=== PATIENT | male | born 1970 | race Caucasian/White ===

== ENCOUNTER 2024-07-20 10:08 | Outpatient (CLI) | payer OTHER, SELFPAY ==
--- NOTE | 2024-07-20 | ECG_ITS ---
Test Date: 2024-07-20 10:36:01 Measurements Intervals [place] Rate: 70 P: 76 MA: 176 QRS: 60 QRSD: 88 T: 57 QT: 365 QTc: 395 Interpretive Statements SINUS RHYTHM POSSIBLE RIGHT VENTRICULAR CONDUCTION DELAY PEAKED T WAVES- CONSIDER HYPERKALEMIA BASELINE ARTIFACT- I, II, III, AVR, AVL ABNORMAL ECG No previous ECG available for comparison Electronically Signed On 07-20-2024 10:37:57 FACILITIES MAINTENANCE SUPERVISOR by Trent Lim D.O.
--- OUTSIDE RECORDS SUMMARY | 2024-07-20 11:14 | XMS_ITS ---
Author Organization [facility] Address [address] [place] [address] Care Team Providers Care Precision Optical Goods Worker Name Role Phone Toñito Guidry MD Unavailable Rc Dodd MD Unavailable Palomo Mason MD Unavailable Amanda Gramajo NP Primary Care Provider [phone] Active Problems Problem Noted Date Diagnosed Date Mass of finger, right 06/20/2020 Overview (06/20/2020): Added automatically from request for surgery [id number] Sensorineural hearing loss (SNHL), bilateral 06/2018 Tinnitus of both ears 10/07/2018 Allergic rhinitis 08/11/2018 Hypertrophy of nasal turbinates 08/11/2018 Deviated nasal septum 08/11/2018 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 Transoral robotic assisted left base of tongue resection 2. Left neck dissection levels 2,3,4 3. Right neck dissection levels 2,3,4 4. Ligation of external carotid system: lingual and facial arteries 5. MINT study, he started on adjuvant radiation with a single dose of cisplatin on 07/22/18. Radiation treatment completed on 08/19/18 Sensory hearing loss, bilateral 05/27/2018 Laryngopharyngeal reflux 07/25/2010 Dysphonia 07/25/2010 Current Oncology Plans No current plan information found. Past Plans Oncology Chemotherapy Treatment Plan Name Start Date Discontinue Date Treatment Medications Discontinue Reason Plan Provider Cycles [id number] - [facility] - Head and Neck - Arm 1 - POAmCRT - Cisplatin x 1 07/22/2018 11/22/2020 CISplatin (PLATINOL) IVPB in 250 mL Provider Discretion Oppelt, Rc Heredia MD 1 of 1 cycle started Radiation Treatments * Plan Last Treated On Elapsed Days Fractions Treated Prescribed Fraction Dose Prescribed Total Dose HN_LT 08/19/2018 28 21 200 cGy 4,200 cGy Reference Point Last Treated On Elapsed Days Session Dose Total Dose [id number] 08/19/2018 28 200 cGy 4,200 cGy Lifetime Dose Tracking * Chemical Lifetime Dose Automatic Entry Manual Entr y Fluoro Time 9.55 minutes 9.55 minutes 0 minutes Air kerma at the reference point (Ka,r) 6.9 mGy 6 .9 mGy 0 mGy DLP 7,016.9 mGycm 7,016.9 mGycm 0 mGycm Treatment Summaries 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 [facility] [address] [place] [address] This Survivorship Care Plan is a cancer treatment summary and follow-up plan and is provided to youto keep with your health care records and to share with your primary care provider or any of your doctors and nurses. This summary is a brief record of major aspects of your cancer treatment not a detailed or comprehensive record of your care. You should review this with your cancer provider. Treatment Summary and Survivorship Care Plan for Head and Neck Cancer General Information Patient name David Zhang (home) Date of 1970 Health Care Providers (Including Names, Institutions) Provider Name: Contact Information: Primary Care Physician Ferny Greer [phone] Surgeon Toiñto Guidry MD [phone] Radiation Oncologist Palomo Mason MD [phone] Medical Oncologist Rc Dodd MD [phone] Speech Language Pathologist Regla Cole [phone] Air Quality Engineer Tanya Waddell [phone] Other Providers Nicki Berg PA-C [facility] [phone] Treatment Summary Cancer Diagnosis Information Diagnosis Squamous cell carcinoma of base of tongue (CMS/HCC) Diagnosis date 05/27/2018 Staging information Cancer Staging Squamous cell carcinoma of base of tongue (CMS/HCC) Staging form: Pharynx - HPV-Mediated Oropharynx, AJCC 8th Edition - Pathologic stage from 06/08/2018: Stage I (pT1, pN1, cM0, p16: Positive) - Signed by Tanya Cates MD on 07/02/2018 Family History Cancer Cancer-related family history includes Breast cancer in his mother Genetic Testing Genetic/hereditary risk factors(s) or predisposing condition: n/a Treatment Completed Surgery Surgery date 06/08/2018 Surgical procedure / location / findings 1. Transoral robotic assisted left base of tongue resection 2. Left neck dissection levels 2,3,4 3. Right neck dissection levels 2,3,4 4. Ligation of external carotid system: lingual and facial arteries Radiation Radiation Treatments Active No active radiation treatments to show. Historical Plans HN_LT Most recent treatment: Dose planned: 200 cGy (fraction 21 on 08/19/2018) Total: Dose planned: 4,200 cGy Elapsed Course Treatment Days: 28 Reference Points [id number] Most recent treatment: Dose given: 200 cGy (on 08/19/2018) Total: Dose given: 4,200 cGy Elapsed Course Treatment Days: 28 Systemic Therapy (chemotherapy, hormonal therapy, other) [id number] - [facility] - Head and Neck - Arm 1 - POAmCRT - Cisplatin x 1 Treatment goal Curative Status Active Start Date 07/22/2018 End Date 08/26/2018 Provider Rc Dodd MD Chemotherapy CISplatin (PLATINOL) 195 mg in sodium chloride 0.9% 250 mL IVPB, 100 mg/m2 = 195 mg, intravenous, Once, 1 of 1 cycle Administration: 195 mg (07/22/2018) Research Studies BANKING: HEAD AND NECK TAP Status On study Start Date 05/22/18 MINT Status On follow up Start Date 06/03/18 [facility] [id number] H&N OUTCOMES DATABASE Status On study Start Date 07/02/18 N[facility] [id number] Treatment Ongoing: No Persistent symptoms or side effects that have continued after finishing treatment: difficulty swallowing, dry mouth, Other: neck tightness/cramping Follow Up Care Plan Your follow-up care plan is design to inform you and primary care providers regarding the recommended and required follow-up, cancer screening and routine health maintenance that is needed to maintain optimal health. Coordinating Provider When/How often MD Toñito Monterroso MD Wade Larry Thorstad, MD Year 1: Every 1-3 months Year 2: Every 2-6 months Year 3-5: Every 4-8 months After Year 5: Every year Dentist: Yearly exam and cleaning at a minimum Ferny Greer Yearly for general health recommendations Cancer Surveillance or other Recommended Tests Coordinating Provider Test How Often Rc Dodd MD Repeat pre-treatment baseline imaging Within 6 months of treatment completionfor new baseline, then as needed Palomo Mason MD TSH if neck irradiated Every 6-12 months Possible late- and long-term effects that someone with this type of cancer and treatment may experience: Dental problems: Difficulty opening your moth (Trismus; lock jaw) Loose teeth Swallowing difficulties Tooth decay Chewing difficulties Exposed bone Numbness/tingling Dry mouth See dentist and discuss management. Fatigue Memory/concentration difficulty Muscle tightness/weakness Lymphedema Lymphedema The risk for developing lymphedema varies across treatments, time and the patient. This may occur right after surgery or months to years after treatment. It affects 12 to 25% of patients. The risk increases with the removal of lymph nodes, radiation therapy and injury. Avoid blood pressure or blooddraw in affected arm if lymph nodes were removed. If you experience skin tightness, swelling, warmth or redness in your affected side, tell your provider right away. Physical therapy can improve lymph drainage. Talk with your provider about approved exercise. Avoid extreme temperature, injury or infection on the affected side. Talk to your provider about a compression stocking, especially when flying. Please continue to see your primary care provider for all general health care recommended for a person your age, including cancer screenings tests. Any symptoms should be brought to the attention of your provider: Anything that represents a brand new symptom; Anything that represents a persistent symptom; Anything you are worried about that might be related to the cancer coming back. Cancer survivors may experience issues with the areas listed below. If you have any concerns in these or other areas, please speak with your doctors or nurses to find out how you can get help with them. Anxiety and depression Emotional and mental health Fatigue Fertility Financial advice or assistance Insurance Memory or concentration loss Parenting Physical functioning School/work Sexual functioning Stopping smoking Weight changes Other A number of lifestyle/behaviors can affect your ongoing health, including the risk for the cancer coming back or developing another cancer. Discuss these recommendations with your doctor or nurse: Eat a healthy diet: focus on lean meats and proteins, more fruits, vegetables and whole grains and low in sugars and fats. Limit red meat and avoid processed meat. Maintain a healthy weight; avoid being overweight. Aim for a normal body mass index (BMI) of 18.5-24.9. Help learning to eat healthier, call the solar/renewable energy sales at: [facility] . Have an active lifestyle, strive for 30 minutes of moderate exercise 5 times a week and strength orresistance training at least twice a week. Use broad-spectrum (UVA+UVB) sunscreen with SPF 30 or greater, is water resistant, limit time spentin the sun (10 am-4pm), wear hat, wear UV protective clothing, wear sunglasses. Never use a tanningbed. Skin that was irradiated may be more sensitive over your lifetime. Do not smoke or chew tobacco; participate in a smoking cessation program. Limit alcohol intake, 1 drink per day for a woman and 2 drinks per day for a man. See dentist at least yearly. Resources you may be interested in: [facility] Cancer Center A National Cancer [place] [facility] http://www.[facility]/ [facility] 1st floor of [facility] [phone]. Computer access, educational material, counseling services (FREE) Cancer Resources: www.cancer.net National Cancer [place]: http://www.cancer.gov/ [place] Disabilities Act: The U.S. Department of Justice provides information about the Americans with Disabilities Act (ADA). Toll free number http://www.ada.gov/ Support for People with Oral and Head and Neck Cancer, Inc. (SPOHNC): dedicated to raising awareness and meeting the needs of oral and head and neck cancer patients through its resources and publications. https://www.spohnc.org/index.php Occupational Therapy at [facility]. Improve memory and thinking following chemotherapy. Improve your performance at home, work and in the community. or Toll free www.ot.[facility]/patients National Coalition for Cancer Survivorship: http://www.canceradvocacy.org/ [place] Cancer Society Cancer Survivors Network: http://csn.cancer.org/ LIVE STRONG at the [employer] is a twelve-week, small group program designed to help adult cancer survivors become more physically active after cancer diagnosis: http://www.[employer]ex[employer].org/what-we-do/our-act ions/programs-partnerships/twhvokbrom-qm-dtp-[facility]/yqijteuuig-rwut-ybrdrxbmr/ USDA LumidigmTracker: www.sones.Edenbee.com.gov Cancer Support Community: Our mission is to ensure that all people impacted by cancer are empoweredby knowledge, strengthened by action, and sustained by community to enhance their overall well-being. http://www.cancersupportstl.org/ Afon1TqrfGlwptac: Building support through a community of individuals with disfigurement to promotehealing through outreach, advocacy, interaction, activity, resources and education. http://zslk3ziyrbvrgvqy.org/ Head and Neck cancer guide: http://headandneckcancerguide.org/adults/khmwibialdnv-uf-kupk-sfc-nqph-pionnw/ Springboard Beyond Cancer: https://survivorship.cancer.gov/ an online tool for cancer survivors andcaregivers created by the [place] Cancer Society and the National Cancer [place]. 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 Transoral robotic assisted left base of tongue resection 2. Left neck dissection levels 2,3,4 3. Right neck dissection levels 2,3,4 4. Ligation of external carotid system: lingual and facial arteries
--- OUTSIDE RECORDS SUMMARY | 2024-07-20 11:14 | XMS_ITS | Encounter Summary ---
Author Organization [facility] Healthcare Address [address] [place] [address] Care Team Providers Care Compositor Apprentice Name Role Phone Ferny Greer MD Primary Care Provider + Toñito Guidry MD Unavailable [phone] Rc Dodd MD Unavailable [phone] Palomo Mason MD Unavailable [phone] Amanda Gramajo NP Primary Care Provider [phone] Encounter Details Date Type Department Care Team (Late st Contact Info) Description 09/20/2019 Telephone [facility] Advanced Medicine Radiation Oncology [address] [facility] [place] [address] Valentina Quintanilla MA Social History Tobacco Use Types Packs/Day Years Used Date Smoking Tobacco: Some Days Cigarettes 1 37.1 Started: 1987 Smokeless Tobacco: Former Chew Alcohol Use Standard Drinks/Week Comments Yes 0 (1 standard drink = 0.6 oz pur e alcohol) 42 drinks/week Sex and Gender Information Value Date Recorded Sex Assigned at Not on file Legal Sex Male 8:56 AM LENS ENGRAVER Gender Identity Not on file Sexual Orientation Not on file documented as of this encounter Plan of Treatment Not on file documented as of this encounter Visit Diagnoses Not on filedocumented in this encounter Care Teams Compositor Apprentice Relationship Specialty Start Date End Date Ferny Greer MD PCP - General 07/02/18 04/02/22 [place] [id number] [address] PCP - General Nurse Practitioner 04/03/22 Toñito Guidry MD [address] [facility] OTOLARYNGOLOGY, [address] [address] Surgeon Otolaryngology 07/02/18 Rc Dodd MD [address] [facility] OT[facility]ARY[facility]OLOGY, [address] [address] Medical Oncologist/Diplomatic Courier Medical Oncology 07/02/18 Palomo Mason MD [address] [facility] [address] [place] [address] Radiation Oncologist Radiation Oncology 07/02/18 documented as of this encounter
--- OUTSIDE RECORDS SUMMARY | 2024-07-20 11:14 | XMS_ITS | Encounter Summary ---
Author Organization [facility] Healthcare Address [address] [place] [address] Care Team Providers Care Food Mixer Assembler Name Role Phone Ferny Greer MD Primary Care Provider + Toñito Guidry MD Unavailable [phone] Rc Dodd MD Unavailable [phone] Palomo Mason MD Unavailable [phone] Amanda Gramjao NP Primary Care Provider [phone] Encounter Details Date Type Department Care Team (Late st Contact Info) Description 09/15/2019 Telephone [facility] Advanced Medicine Radiation Oncology [address] 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 Gender Identity Not on file Sexual Orientation Not on file documented as of this encounter Plan of Treatment Not on file documented as of this encounter Visit Diagnoses Not on filedocumented in this encounter Care Teams Food Mixer Assembler Relationship Specialty Start Date End Date Ferny Greer MD PCP - General 07/02/18 04/02/22 [place] [id number] [address] PCP - General Nurse Practitioner 04/03/22 Toñito Guidry MD [address] [facility] OTOLARYNGOLOGY, [address] [address] Surgeon Otolaryngology 07/02/18 Rc Dodd MD [address] [facility] OTOLARYNGOLOGY, [address] [address] Medical Oncologist/Generator Worker Medical Oncology 07/02/18 Palomo Mason MD [address] [facility] [address] [place] [address] Radiation Oncologist Radiation Oncology 07/02/18 documented as of this encounter
--- OUTSIDE RECORDS SUMMARY | 2024-07-20 11:14 | XMS_ITS | Referral Summary ---
Author Organization [facility] Address [address] [facility] [address] [facility] [place] [address] Care Team Providers Care Refrigerated Cargo Clerk Name Role Phone Toñito Guidry MD Unavailable Rc Dodd MD Unavailable [phone] Palomo Mason MD Unavailable Amanda Gramajo NP Primary Care Provider [phone] Allergies No known active allergies Medications nicotine (NICODERM CQ) [address] 1 patch on the skin daily 30 patch 2 Active mometasone (NASONEX) 50 mcg/actuation nasal spray [place] 2 sprays every day by intranasal route. 6 Active benzonatate (TESSALON) 200 mg capsule Take 1 capsule 3 times a day by oral route for 20 days. 6 Active bacitracin ophthalmic ointment Apply 1 application 3 times a day by ophthalmic route as directed. 6 Active albuterol HFA (PROVENTIL HFA,VENTOLIN HFA,PROAIR HFA) 90 mcg/actuation inhaler Inhale 2 puffs every 4 hours by inhalation route. 6 Active Active Problems Problem Noted Date Diagnosed Date Mass of finger, right 06/20/2020 Overview (06/20/2020): Added automatically from request for surgery [id number] Sensorineural hearing loss (SNHL), bilateral 06/2018 Tinnitus [...] bilateral 05/27/2018 Laryngopharyngeal reflux 07/25/2010 Dysphonia 07/25/2010 Resolved Problems Problem Noted Date Diagnosed Date [...] external carotid system: lingual and facial arteries Social History Tobacco Use Types Packs/Day Years Used Date Smoking Tobacco: Some Days Cigarettes 1 37.1 Started: 1987 Smokeless Tobacco: Current Chew Tobacco Cessation:Ready to Q uit: Not Asked; Counseling Given: Not Answered Alcohol Use Standard Drinks/Week Comments Yes 4 (1 standard drink = 0.6 oz pur e alcohol) DAILY Sex and Gender Information Value Date Recorded Sex Assigned at Not on file Legal Sex Male 8:56 AM STRATEGIES ANALYST Gender Identity Not on file Sexual Orientation Not on file Last Filed Vital Signs Vital Sign Reading Time Taken Comments Blood Pressure 129/87 10/03/2021 10:26 AM CDT Pulse 68 10/03/2021 10:26 AM CDT Temperature 36.1 C (97 F) 10/03/2021 10:26 AM CDT Respiratory Rate 16 10/03/2021 10:26 AM CDT Oxygen Saturation 100% 10/03/2021 10:26 AM CDT Inhaled Oxygen Concentration - - Weight 73.5 kg (162 lb) 10/15/2023 3:11 PM CDT Height 182.9 cm (6') 10/15/2023 3:11 PM CDT Body Mass Index 21.97 10/15/2023 3:11 PM CDT Plan of Treatment Not on file Procedures Procedure Name Priority Date/Time Associated Diagnosis Comments HEPATITIS C ANTIBODY STAT 06/08/2018 3:30 PM STRATEGIES ANALYST from Last 3 Months or Most Recently Relevant to Health Maintenance Results * Hepatitis C antibody (06/08/2018 3:30 PM STRATEGIES ANALYST) Hep C Ab Nonreactive Nonreactive [facility] Comment: Interpretive Data Positive results should be confirmed by a molecular method. If positive, a second separately collected sample should be submitted for Hepatitis C Virus (HCV) RNA Detection and Quantitation by Real-Time Reverse Marketing Campaign Analyst-PCR (RT-PCR). Current interpretive data was last revised on 2016. Blood specimen (specimen) 06/08/2018 3:30 PM STRATEGIES ANALYST 06/08/2018 3:48 PM STRATEGIES ANALYST Narrative [facility] - 06/09/2018 8:29 AM STRATEGIES ANALYST us Notinfile Unknown LAB MICROBIOLOGY - GENERAL ORD ERABLES Edited Result - Final [facility] Department [place] [address] from Last 3 Months or Most Recently Relevant to Health Maintenance Insurance [facility] H[facility]/PPO Address: [address] [address] [place] [address] [facility] H[facility]/PPO Address: [address] [address] [place] [address] [facility] [facility]/PPO Address: [place] [address] Advance Directives For more information, please contact: [phone] * Full Code (Latest Code Status on File) Date Activated Date Inactivated Comments 06/08/2018 6:03 PM 06/10/2018 4:54 PM Care Teams Refrigerated Cargo Clerk Relationship Specialty Start Date End Date Amanda Gramajo JUNIOR LINUX ADMINISTRATOR [address] [address] PCP - General Nurse Practitioner 04/03/22 Toñito Guidry MD [address] [facility]PT OTOLARYNGOLOGY, [address] [address] Surgeon Otolaryngology 07/02/18 Rc Dodd MD [address] [facility] OTOLARYNGOLOGY, [address] [address] Medical Oncologist/Machine Operator Picker Medical Oncology 07/02/18 Palomo Mason MD [address] [facility] [address] [place] [address] Radiation Oncologist Radiation Oncology 07/02/18
--- OUTSIDE RECORDS SUMMARY | 2024-07-20 11:14 | XMS_ITS | Encounter Summary ---
Author Organization [facility] [facility] Address [address] [place] [address] Phone Care Team Providers Care Bioinformatics Software Engineer Name Role Phone Ferny Greer MD Primary Care Provider + No, Physician Primary Care Provider [phone] No, Physician Primary Care Provider [phone], Physician Primary Care Provider [phone] Ferny Greer MD Primary Care Provider + Toñito Guidry MD Unavailable Rc Dodd MD Unavailable [phone] Palomo Mason MD Unavailable Amanda Gramajo NP Primary Care Provider [phone] Encounter Details Date Type Department Care Team (Late st Contact Info) Description 05/28/2018 Telephone [facility] ([facility]) - [facility] E[facility] [address] [facility] Advanced Medicine 11th [place] [address] [place] [address] Kyra Castillo Social History Tobacco Use Types Packs/Day Years Used Date Smoking Tobacco: Every Day Cigarettes 1 37.1 Started: 1987 Smokeless Tobacco: Current Alcohol Use Standard Drinks/Week Comments Yes 0 (1 standard drink = 0.6 oz pur e alcohol) 42 drinks/week Sex and Gender Information Value Date Recorded Sex Assigned at Not on file 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 Sex Male 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 Gender Identity Not on file Sexual Orientation Not on file documented as of this encounter Plan of Treatment Not on file documented as of this encounter Visit Diagnoses Not on filedocumented in this encounter Care Teams Bioinformatics Software Engineer Relationship Specialty Start Date End Date Ferny Greer MD PCP - General 05/27/18 06/04/18 No, Physician PCP - General 06/05/18 06/07/18 No, Physician PCP - General 06/08/18 06/09/18 No, Physician PCP - General 06/10/18 07/01/18 Ferny Greer MD PCP - General 07/02/18 04/02/22 [place] [address] [address] PCP - General Nurse Practitioner 04/03/22 Toñito Guidry MD [address] [facility] DEPT OTOLARYNGOLOGY, [address] [address] Surgeon Otolaryngology 07/02/18 Rc Dodd MD [address] [facility] DEPT OTOLARYNGOLOGY, [address] [address] Medical Oncologist/Aviation Medicine Specialist Medical Oncology 07/02/18 Palomo Mason MD [address] [facility] [address] [place] [address] Radiation Oncologist Radiation Oncology 07/02/18 documented as of this encounter
--- OUTSIDE RECORDS SUMMARY | 2024-07-20 11:14 | XMS_ITS | Clinical Summary ---
Author Organization [facility] Address [address] [facility] [place] [address] Care Team Providers Care Manager Primary Name Role Phone Toñito Guidry MD Unavailable [phone] Rc Dodd MD Unavailable Palomo Mason MD Unavailable Amanda Gramajo NP Primary Care Provider [phone] Allergies No known active allergies Medications nicotine (NICODERM CQ) [address] 1 patch on the skin daily 30 patch 2 Active mometasone (NASONEX) 50 mcg/actuation nasal spray [place] 2 sprays every day by intranasal route. [...] (06/20/2020): Added automatically from request for surgery [id number] Sensorineural hearing loss (SNHL), bilateral 06/2018 Tinnitus [...] external carotid system: lingual and facial arteries Surgical History Surgery Date Site/Laterality Comments NECK SURGERY 06/09/2009 - 06/08/2010 RUPTURED DISC WISDOM TOOTH EXTRACTION THROAT SURGERY 06/09/2017 - 06/08/2018 REMOVED TUMOR Medical History Medical History Date Comments Hay fever Ringing in ears Runny nose Cancer (CMS/HCC) (HCC) HL (hearing loss) Exposure to noise Weakness Tiredness Urinary dribbling Sleep difficulties Family History Medical History Relation Name Comments No Known Problems Brother Heart disease Father No Known Problems Father's Brother No Known Problems Father's Sister Heart disease Maternal Grandfather No Known Problems Maternal Grandmother Breast cancer Mother No Known Problems Mother's Brother No Known Problems Mother's Sister Lung cancer Paternal Grandfather Heart disease Paternal Grandmother No Known Problems Sister Anesthesia problems Neg Hx Relation Name Status Comments Brother Father Father's Brother Father's Sister Maternal Grandfather Maternal Grandmother Mother Alive Mother's Brother Mother's Sister Paternal Grandfather Paternal Grandmother Sister Social History Tobacco Use Types Packs/Day Years [...] on file Legal Sex Male 8:56 AM MANUAL QA TESTER Gender Identity Not on file Sexual Orientation Not on file Obstetrics History Last Filed Vital Signs Vital Sign Reading [...] 10/15/2023 3:11 PM CDT Plan of Treatment Health Maintenance Due Date Last Done Comments Colon Cancer Screening-Colonoscopy 1970 Depression Screening 1970 Prostate Cancer Screening-PSA 1970 Pneumococcal vaccine <65 (1 of 2 - PCV) 1976 DTaP/Tdap/Td Vaccine (1 - Tdap) 1981 Hepatitis B Screening 1988 Regular Well Visit/Exam 18-64 1988 Zoster Vaccine (1 of 2) 1989 Lung Cancer Screening 2020 Influenza Vaccine (#1) 2024 Hepatitis C Screening Completed 06/08/2018, 018 Procedures Procedure Name Priority Date/Time Associated Diagnosis Comments HEPATITIS C ANTIBODY STAT 06/08/2018 3:30 PM MANUAL QA TESTER from Last 3 Months or Most Recently Relevant to Health Maintenance Results * Hepatitis C antibody (06/08/2018 3:30 PM MANUAL QA TESTER) Hep C Ab Nonreactive Nonreactive [facility] Comment: Interpretive Data Positive results should be confirmed by a molecular method. If positive, a second separately collected sample should be submitted for Hepatitis C Virus (HCV) RNA Detection and Quantitation by Real-Time Reverse Stereoplotter Operator-PCR (RT-PCR). Current interpretive data was last revised on 2016. Blood specimen (specimen) 06/08/2018 3:30 PM MANUAL QA TESTER 06/08/2018 3:48 PM MANUAL QA TESTER Narrative [facility] - 06/09/2018 8:29 AM MANUAL QA TESTER us Notinfile Unknown LAB MICROBIOLOGY - GENERAL ORD ERABLES Edited Result - Final [facility] Department [place] [address] from Last 3 Months or Most Recently Relevant to Health Maintenance Insurance [facility] CHOICE PLUS [facility] HMO/PPO Address: [facility] [address] [place] [address] [facility] CHOICE PLUS [facility] HMO/PPO Address: [address] [address] [place] [phone] [facility] CHOICE PLUS [facility] HMO/PPO Address: [address] [address] [place] [address] Advance Directives For more information, please contact: [phone] * Full Code (Latest Code Status on File) Date Activated Date Inactivated Comments 06/08/2018 6:03 PM 06/10/2018 4:54 PM Care Teams Manager Primary Relationship Specialty [place] [address] [address] [address] PCP - General Nurse Practitioner 04/03/22 Toñito Guidry MD [address] [facility] DEPT [address]ARYNGOLOGY[address] [address] Surgeon Otolaryngology 07/02/18 Rc Dodd MD [address] [facility] [address] Medical Oncologist/Resident Engineer Medical Oncology 07/02/18 Palomo Mason MD [address] [facility] [address] [place] [address] Radiation Oncologist Radiation Oncology 07/02/18
--- OUTSIDE RECORDS SUMMARY | 2024-07-20 11:14 | XMS_ITS | Clinical Summary ---
Author Organization [facility] Address [address] [place] [address] Care Team Providers Care Corporation Lawyer Name Role Phone Ferny Greer MD Primary Care Provider [phone] Allergies No known active allergies Medications cetirizine 10 MG tablet Take 10 mg by mouth daily. Active buPROPion SR (WELLBUTRIN SR) 150 MG 12 hr tabletIndication s:Cigarette nicotine dependence without complication Start 150 mg (1 tablet) daily for 3 days then increase to 150 mg (1 tablet) twice a day. 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 Transoral robotic assisted left base of tongue resection 2. Left neck dissection levels 2,3,4 3. Right neck dissection levels 2,3,4 4. Ligation of external carotid system: lingual and facial arteries 5. MINT study, he started on adjuvant radiation with a single dose of cisplatin on 07/22/18. 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 Transoral robotic assisted left base of tongue resection 2. Left neck dissection levels 2,3,4 3. Right neck dissection levels 2,3,4 4. Ligation of external carotid system: lingual and facial arteries 5. MINT study, he started on adjuvant radiation with a single dose of cisplatin on 07/22/18. Radiation treatment completed on 08/19/18 Sensory hearing loss, bilateral 05/27/2018 Nicotine dependence 05/30/2015 Laryngopharyngeal reflux 07/25/2010 Dysphonia 07/25/2010 Resolved Problems Problem Noted Date Diagnosed Date Resolved Date Sinusitis 05/01/2020 05/01/2020 Bronchitis 05/01/2020 05/01/2020 Family History Medical History Relation Comments Rectal cancer Father Asthma Mother Relation Status Comments Father Mother Social History Tobacco Use Types Packs/Day Years Used Date Smoking Tobacco: Every Day Cigarettes 1.5 35 Smokeless Tobacco: Current Chew Tobacco Cessation:Ready to Q uit: Not Asked; Counseling Given: Yes Alcohol Use Standard Drinks/Week Comments Yes 0 (1 standard drink = 0.6 oz pur e alcohol) soially PHQ-2 Answer Date Recorded Patient Health Questionnaire-2 Score 0 07/01/2022 Sex and Gender Information Value Date Recorded Sex Assigned at Not on file Legal Sex Male 6:03 PM CDT Gender Identity Not on file Sexual Orientation Not on file Last Filed Vital Signs Vital Sign Reading Time Taken Comments Blood Pressure 118/82 07/01/2022 11:27 AM SMALL PIECE CUTTER Pulse 86 07/01/2022 11:27 AM SMALL PIECE CUTTER Temperature 37.2 C (99 F) 07/01/2022 11:27 AM SMALL PIECE CUTTER Respiratory Rate 16 07/01/2022 11:27 AM SMALL PIECE CUTTER Oxygen Saturation 98% 07/01/2022 11:27 AM SMALL PIECE CUTTER Inhaled Oxygen Concentration - - Weight 70.8 kg (156 lb) 07/01/2022 11:27 AM SMALL PIECE CUTTER Height 182.9 cm (6') 07/01/2022 11:27 AM SMALL PIECE CUTTER Body Mass Index 21.16 07/01/2022 11:27 AM SMALL PIECE CUTTER Plan of Treatment Health Maintenance Due Date Last Done Comments Colorectal Cancer Screening Colonoscopy (10 Years) 1970 Pneumococcal Vaccine: Pediat rics (0 to 5 Years) and At-Risk Patients (6 to 64 Years) (1 of 2 - PCV) 1976 Hepatitis C 1988 DTaP, Tdap and Td Vaccines ( 1 - Tdap) 1989 Hepatitis B Vaccines (1 of 3 - 19+ 3-dose series) 1989 Zoster Vaccines (1 of 2) 2020 Annual Physical 04/28/2021 04/28/2020 COVID-19 Vaccine ( - 2023-2 5 season) 2024 Influenza Adult (#1) 2024 PHQ-2 (Physician [place]) 06/09/2024 Meningococcal B Vaccine Aged Out No l onger eligible based on patient's age to complete this topic Meningococcal Vaccine Aged Out No carmencita judy eligible based on patient's age to complete this topic RSV Immunizations Under 20 Months Aged Out No longer eligible based on patient's age to complete this topic Insurance [facility] Care Teams Corporation Lawyer Relationship Specialty Start Date End Date Ferny Greer MD PCP - General INTERNAL MEDICINE 05/07/18
--- OUTSIDE RECORDS SUMMARY | 2024-07-20 11:14 | XMS_ITS | Encounter Summary ---
Author Organization [facility] Healthcare Address [address] [place] [address] Care Team Providers Care Workers Compensation Specialist Name Role Phone Ferny Greer MD Primary Care Provider + Toñito Guidry MD Unavailable [phone] Rc Dodd MD Unavailable [phone] Palomo Mason MD Unavailable [phone] Amanda Gramajo NP Primary Care Provider [phone] Encounter Details Date Type Department Care Team (Late st Contact Info) Description 12/30/2019 Telephone [facility] Advanced Medicine Radiation Oncology [address] [facility] [place] [address] Valentina Quintanilla MA Social History Tobacco Use Types Packs/Day Years Used Date Smoking Tobacco: Some Days Cigarettes 1 37.1 Started: 1987 Smokeless Tobacco: Former Chew Alcohol Use Standard Drinks/Week Comments Yes 0 (1 standard drink = 0.6 oz pur e alcohol) 42 drinks/week Sex and Gender Information Value Date Recorded Sex Assigned at Not on file Legal Sex Male 8:56 AM ETCHER APPRENTICE Gender Identity Not on file Sexual Orientation Not on file documented as of this encounter Plan of Treatment Not on file documented as of this encounter Visit Diagnoses Not on filedocumented in this encounter Care Teams Workers Compensation Specialist Relationship Specialty Start Date End Date Ferny Greer MD PCP - General 07/02/18 04/02/22 [place] [address] [address] PCP - General Nurse Practitioner 04/03/22 Toñito Guidry MD [address] [facility] DEPT OTOLARYNGOLOGY, [address] [address] Surgeon Otolaryngology 07/02/18 Rc Dodd MD [address] [facility] DEPT OTOLARYNGOLOGY, [address] [address] Medical Oncologist/Plastic Joint Maker Medical Oncology 07/02/18 Palomo Mason MD [address] [facility] [address] [place] [address] Radiation Oncologist Radiation Oncology 07/02/18 documented as of this encounter
== END 2024-07-20 10:09 | disposition home or self-care (01) ==
LOC: ANHCARD 10:11
PROVIDERS: Visit Provider Podiatrist Foot & Ankle Surgery
DX: R94.31 Abnormal electrocardiogram [ECG] [EKG] (principal); R03.0 Elevated blood-pressure reading, without diagnosis of hypertension
CPT/HCPCS: 93005

== ENCOUNTER 2024-09-20 12:07 | Outpatient (CLI) | payer OTHER, SELFPAY ==
[2024-09-20 13:14] LABS: Alanine Aminotransferase 19 U/L (6-50); Albumin Level 4.2 g/dL (3.5-5.1); Alkaline Phosphatase 72 U/L (38-126); Anion Gap 8 mmol/L (4-12); Aspartate Amino Transferase 28 U/L (17-59); Bilirubin,Total 0.5 mg/dL (0.2-1.3); Blood Urea Nitrogen 15 mg/dL (9-20); Calcium 9.1 mg/dL (8.4-10.2); Carbon Dioxide 26 mmol/L (22-30); Chloride 100 mmol/L (98-107); Estimated Glomerular Filt Rate > 60; Glucose 93 mg/dL (65-110); Potassium 3.6 mmol/L (3.4-5.0); Sodium 134 mmol/L (137-145)
--- OUTSIDE RECORDS SUMMARY | 2024-09-20 13:26 | XMS_ITS | Encounter Summary ---
Author Organization [facility] Healthcare Address [address] [place] [address] Care Team Providers Care Guillotine Trimmer Name Role Phone Ferny Greer MD Primary Care Provider + Toñito Guidry MD Unavailable [phone] Rc Dodd MD Unavailable [phone] Palomo Mason MD Unavailable [phone] Amanda Gramajo NP Primary Care Provider [phone] Encounter Details Date Type Department Care Team (Late st Contact Info) Description 09/15/[address] [facility] Advanced Medicine Radiation Oncology [address] [facility] [place] [address] Valentina Quintanilla MA Social History Tobacco Use Types Packs/Day Years Used Date Smoking Tobacco: Some Days Cigarettes 1 37.3 Started: 1987 Smokeless Tobacco: Former Chew Alcohol Use Standard Drinks/Week Comments Yes 0 (1 standard drink = 0.6 oz pur e alcohol) 42 drinks/week Sex and Gender Information Value Date Recorded Sex Assigned at Not on file Legal Sex Male 8:56 AM PROPULSION ENGINEER Gender Identity Not on file Sexual Orientation Not on file documented as of this encounter Plan of Treatment Not on file documented as of this encounter Visit Diagnoses Not on filedocumented in this encounter Care Teams Guillotine Trimmer Relationship Specialty Start Date End Date Ferny Greer MD PCP - General 07/02/18 04/02/22 [place] [address] [address] PCP - General Nurse Practitioner 04/03/22 Toñito Guidry MD [address] [facility] DEPT OTOLARYNGOLOGY, [address] [address] Surgeon Otolaryngology 07/02/18 Rc Dodd MD [address] [facility] DEPT OTOLARYNGOLOGY, [address] [address] Medical Oncologist/Electronic Engineering Draftsperson Medical Oncology 07/02/18 Palomo Mason MD [address] [facility] [address] [place] [address] Radiation Oncologist Radiation Oncology 07/02/18 documented as of this encounter
--- OUTSIDE RECORDS SUMMARY | 2024-09-20 13:26 | XMS_ITS | Clinical Summary ---
Author Organization 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 Transoral robotic assisted left base [...] HPV related squamous cell carcinoma PROCEDURE PERFORMED: ([place] 06/08/18) 1. Transoral robotic assisted left base [...] Comments Blood Pressure 118/82 07/01/2022 11:27 AM CIGARETTE MACHINE FILLER Pulse 86 07/01/2022 11:27 AM CIGARETTE MACHINE FILLER Temperature 37.2 C (99 F) 07/01/2022 11:27 AM CIGARETTE MACHINE FILLER Respiratory Rate 16 07/01/2022 11:27 AM CIGARETTE MACHINE FILLER Oxygen Saturation 98% 07/01/2022 11:27 AM CIGARETTE MACHINE FILLER Inhaled Oxygen Concentration - - Weight 70.8 kg (156 lb) 07/01/2022 11:27 AM CIGARETTE MACHINE FILLER Height 182.9 cm (6') 07/01/2022 11:27 AM CIGARETTE MACHINE FILLER Body Mass Index 21.16 07/01/2022 11:27 AM CIGARETTE MACHINE FILLER Plan of Treatment Health Maintenance Due Date Last Done Comments Colorectal Cancer Screening Colonoscopy (10 Years) 1970 Pneumococcal Vaccine: Pediat rics (0 to 5 Years) and At-Risk Patients (6 to 49 Years) (1 of 2 - PCV) 1976 Hepatitis C 1988 DTaP, Tdap and Td Vaccines ( 1 - Tdap) 1989 Hepatitis B Vaccines (1 of 3 - 19+ 3-dose series) 1989 Zoster Vaccines (1 of 2) 2020 Annual Physical 04/28/2021 04/28/2020 COVID-19 Vaccine ( - 2023-2 5 season) 2024 PHQ-2 (Physician [place]) 06/09/2024 Meningococcal B Vaccine Aged Out No l onger eligible based on patient's age to complete this topic Meningococcal Vaccine Aged Out No carmencita judy eligible based on patient's age to complete this topic RSV Immunizations Under 20 Months Aged Out No longer eligible based on patient's age to complete this topic Insurance [facility] Care Teams Director Treasurer Relationship Specialty Start Date End Date Ferny Greer MD PCP - General INTERNAL MEDICINE 05/07/18
--- OUTSIDE RECORDS SUMMARY | 2024-09-20 13:26 | XMS_ITS | Encounter Summary ---
Author Organization [facility] Address [address] [place] [address] Phone Care Team Providers Care Printed Circuit Boards Stripper Etcher Name Role Phone Ferny Greer MD Primary Care Provider + No, Physician Primary Care Provider [phone] No, Physician Primary Care Provider [phone] No, Physician Primary Care Provider [phone] Ferny Greer MD Primary Care Provider + Toñito Guidry MD Unavailable Rc Dodd MD Unavailable [phone] Palomo Mason MD Unavailable [phone] Amanda Gramajo NP Primary Care Provider [phone] Encounter Details Date Type Department Care Team (Late st Contact Info) Description 05/28/2018 Telephone [place] [facility] - [facility] ENT [address] [facility] Advanced Medicine 11th [place] [address] [place] [address] Kyra Castillo Social History Tobacco Use Types Packs/Day Years Used Date Smoking Tobacco: Every Day Cigarettes 1 37.3 Started: 1987 Smokeless Tobacco: Current Alcohol Use Standard Drinks/Week Comments Yes 0 (1 standard drink = 0.6 oz pur e alcohol) 42 drinks/week Sex and Gender Information Value Date Recorded Sex Assigned at Not on file Legal Sex Male 8:56 AM MANAGER STATISTICAL Gender Identity Not on file Sexual Orientation Not on file documented as of this encounter Plan of Treatment Not on file documented as of this encounter Visit Diagnoses Not on filedocumented in this encounter Care Teams Printed Circuit Boards Stripper Etcher Relationship Specialty Start Date End Date Ferny Greer MD PCP - General 05/27/18 06/04/18 No, Physician PCP - General 06/05/18 06/07/18 No, Physician PCP - General 06/08/18 06/09/18 No, Physician PCP - General 06/10/18 07/01/18 Ferny Greer MD PCP - General 07/02/18 04/02/22 [place] [address] [address] PCP - General Nurse Practitioner 04/03/22 Toñito Guidry MD [address] [facility] DEPT OTOLARYNGOLOGY, [address] [address] Surgeon Otolaryngology 07/02/18 Rc Dodd MD [address] [facility] DEPT OTOLARYNGOLOGY, [address] [address] Medical Oncologist/Hedge Fund Accountant Medical Oncology 07/02/18 Palomo Mason MD [address] [facility] [address] [place] [address] Radiation Oncologist Radiation Oncology 07/02/18 documented as of this encounter
--- OUTSIDE RECORDS SUMMARY | 2024-09-20 13:26 | XMS_ITS ---
Author Organization [facility] Address [address] [place] [address] Care Team Providers Care Chore Tender Name Role Phone Toñito Guidry MD Unavailable Rc Dodd MD Unavailable Palomo Mason MD Unavailable Amanda Gramajo NP Primary Care Provider [phone] Active Problems Problem Noted Date Diagnosed Date Mass of finger, right 06/20/2020 Overview (06/20/2020): Added automatically from request for surgery [id number] Sensorineural hearing loss (SNHL), bilateral 06/2018 Tinnitus [...] 05/27/2018 Laryngopharyngeal reflux 07/25/2010 Dysphonia 07/25/2010 Current Treatment and Therapy Plans No current plan information found. Past Treatment and Therapy Plans Oncology Chemotherapy Treatment Plan Name Start Date Discontinue Date Treatment Medications Discontinue Reason Plan Provider Cycles [id number] - [facility] - Head and Neck - Arm 1 - POAmCRT - Cisplatin x 1 07/22/2018 11/22/2020 CISplatin (PLATINOL) IVPB in 250 mL Provider Discretion NathaliepeRc beebe MD 1 of 1 cycle started Radiation Treatments * Course C1 HN 201807/22/2018 - 08/19/2018 Treatment Period Energy Fraction Dose Fractions Total Dose Plans Planned HN_LT 07/22/2018 - 08/19/2018 200 21 / 4,200 Reference Points Delivered PTV_4200 07/22/2018 - 08/19/2018 4,200 Lifetime Dose Tracking * Chemical Lifetime Dose Automatic Entry Manual Entr y Fluoro Time 9.55 minutes 9.55 minutes 0 minutes Air kerma at the reference point (Ka,r) 6.9 mGy 6 .9 mGy 0 mGy DLP 7,016.9 mGycm 7,016.9 mGycm 0 mGycm Treatment Summaries 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 [facility] [address] [place], [place] [id number] This Survivorship Care Plan is a cancer [...] Contact Information: Primary Care Physician Ferny Greer [phone] Surgeon Toñito Guidry MD [phone] Radiation Oncologist Palomo Mason MD [phone] Medical Oncologist Rc Dodd MD [phone] Speech Language Pathologist Regla Cole [phone] Oven Unloader Tanya Waddell [phone] Other Providers Nicki Berg PA-C [facility] [phone] Treatment Summary Cancer Diagnosis Information Diagnosis Squamous [...] 28 Systemic Therapy (chemotherapy, hormonal therapy, other) [id number] - [facility] - Head and Neck - Arm 1 [...] Status On follow up Start Date 06/03/18 [facility] [id number] H&N OUTCOMES DATABASE Status On study Start Date 07/02/18 [facility] [id number] Treatment Ongoing: No Persistent symptoms or side [...] Help learning to eat healthier, call the family and consumer education teacher at: [facility] . Have an active lifestyle, strive for [...] yearly. Resources you may be interested in: [facility] A National Cancer [place] Comprehensive Cancer Center http://www.[facility]/ [facility] & Cancer Information Center 1st floor of [facility] Advanced Medicine [phone]. Computer access, educational material, counseling services (FREE) Cancer Resources: www.cancer.net National Cancer [place]: http://www.cancer.gov/ [place] Disabilities Act: The U.S. Department of Justice provides information about the Americans with Disabilities Act (ADA). Toll free number http://www.ada.gov/ Support for People with Oral and Head and Neck Cancer, Inc. (SPOHNC): dedicated to raising awareness and meeting the needs of oral and head and neck cancer patients through its resources and publications. https://www.spohnc.org/index.php Occupational Therapy at [facility]. Improve memory and thinking following chemotherapy. Improve your performance at home, work and in the community. or Toll free www.ot.[facility]/patients National Coalition for Cancer Survivorship: http://www.canceradvocacy.org/ [place] Cancer Society Cancer Survivors Network: http://csn.cancer.org/ LIVE STRONG at the [facility] is a twelve-week, small group program designed to help adult cancer survivors become more physically active after cancer diagnosis: http://www.locr.org/what-we-do/our-act ions/programs-partnerships/nhcrqizkbs-ga-gjp-[facility]/yiwwlncaor-bnvu-jchsjcnqx/ Local DirtTracker: www.[employer].gov Cancer Support Community: Our mission is to ensure that all people impacted by cancer are empoweredby knowledge, strengthened by action, and sustained by community to enhance their overall well-being. http://www.cancersupportstl.org/ Znti3XoztRnpoien: Building support through a community of individuals with disfigurement to promotehealing through outreach, advocacy, interaction, activity, resources and education. http://izhr6lgmozgnajne.org/ Head and Neck cancer guide: http://headandneckcancerguide.org/adults/svztuzefiqoh-ce-rand-twj-zcyi-rulfly/ Springboard Beyond Cancer: https://survivorship.cancer.gov/ an online tool for cancer survivors andcaregivers created by the [place] Cancer Society and the National Cancer [place]. It provides: Information on dealing with side [...]
--- OUTSIDE RECORDS SUMMARY | 2024-09-20 13:26 | XMS_ITS | Encounter Summary ---
Author Organization [facility] Address [address] [place] [address] Care Team Providers Care Husker Operator Name Role Phone Ferny Greer MD Primary Care Provider + Toñito Guidry MD Unavailable [phone] Rc Dodd MD Unavailable [phone] Palomo Mason MD Unavailable [phone] Amanda Gramajo NP Primary Care Provider [phone] Encounter Details Date Type Department Care Team (Late st Contact Info) Description 12/30/2019 Telephone [facility] Advanced Medicine Radiation Oncology [address] [facility] [place] [address] Valentina Quintanilla MA Social History Tobacco Use Types Packs/Day Years Used Date Smoking Tobacco: Some Days Cigarettes 1 37.3 Started: 1987 Smokeless Tobacco: Former Chew Alcohol Use Standard Drinks/Week Comments Yes 0 (1 standard drink = 0.6 oz pur e alcohol) 42 drinks/week Sex and Gender Information Value Date Recorded Sex Assigned at Not on file Legal Sex Male 8:56 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 Gender Identity Not on file Sexual Orientation Not on file documented as of this encounter Plan of Treatment Not on file documented as of this encounter Visit Diagnoses Not on filedocumented in this encounter Care Teams Husker Operator Relationship Specialty Start Date End Date Ferny Greer MD PCP - General 07/02/18 04/02/22 [place] [id number] [address] PCP - General Nurse Practitioner 04/03/22 Toñito Guidry MD [address] [facility] DEPT OTOLARYNGOLOGY, [address] [address] Surgeon Otolaryngology 07/02/18 Rc Dodd MD [address] [facility] DEPT OTOLARYNGOLOGY, [address] [address] Medical Oncologist/Facility Engineer Medical Oncology 07/02/18 Palomo Mason MD [address] [facility] [address] LL [address] [place] [address] Radiation Oncologist Radiation Oncology 07/02/18 documented as of this encounter
--- OUTSIDE RECORDS SUMMARY | 2024-09-20 13:26 | XMS_ITS | Referral Summary ---
Author Organization [facility] Address [address] [facility] [place] [address] Care Team Providers Care Terminal Supervisor Name Role Phone Toñito Guidry MD Unavailable Rc Dodd MD Unavailable Palomo Mason MD Unavailable Amanda Gramajo NP Primary Care Provider [phone] Allergies No known active allergies Medications nicotine (NICODERM CQ) [address] 1 patch on the skin daily 30 patch 2 Active mometasone (NASONEX) 50 mcg/actuation nasal spray [place] 2 sprays every day by intranasal route. [...] (06/20/2020): Added automatically from request for surgery [id number] Sensorineural hearing loss (SNHL), bilateral 06/2018 Tinnitus [...] 1 37.3 Started: 1987 Smokeless Tobacco: Current Chew Tobacco Cessation:Ready to Q uit: Not Asked; Counseling Given: Not Answered Alcohol Use Standard Drinks/Week Comments Yes 4 (1 standard drink = 0.6 oz pur e alcohol) DAILY Sex and Gender Information Value Date Recorded Sex Assigned at Not on file Legal Sex Male 8:56 AM AUTOCAD DETAILER Gender Identity Not on file Sexual Orientation [...] HEPATITIS C ANTIBODY STAT 06/08/2018 3:30 PM AUTOCAD DETAILER from Last 3 Months or Most Recently Relevant to Health Maintenance Results * Hepatitis C antibody (06/08/2018 3:30 PM AUTOCAD DETAILER) Hep C Ab Nonreactive Nonreactive [facility] Comment: Interpretive Data Positive results should be confirmed by a molecular method. If positive, a second separately collected sample should be submitted for Hepatitis C Virus (HCV) RNA Detection and Quantitation by Real-Time Reverse Clinical Support Tech-PCR (RT-PCR). Current interpretive data was last revised on 2016. Blood specimen (specimen) 06/08/2018 3:30 PM AUTOCAD DETAILER 06/08/2018 3:48 PM AUTOCAD DETAILER Narrative [facility] - 06/09/2018 8:29 AM AUTOCAD DETAILER us Notinfile Unknown LAB MICROBIOLOGY - GENERAL ORD ERABLES Edited Result - Final [facility] Department [place] [address] from Last 3 Months or Most Recently Relevant to Health Maintenance Insurance [facility] CHOICE PLUS [facility] CHOICE PLUS [facility] CHOICE PLUS Advance Directives For more information, please contact: [phone] * Full Code (Latest Code Status on File) Date Activated Date Inactivated Comments 06/08/2018 6:03 PM 06/10/2018 4:54 PM Care Teams Terminal Supervisor Relationship Specialty Start Date End Date Amanda Gramajo [employer] [address] [address] PCP - General Nurse Practitioner 04/03/22 Toñito Guidry MD [address] [facility] DEPT OTOLARYNGOLOGY, [address] [address] Surgeon Otolaryngology 07/02/18 Rc Dodd MD [address] [facility] DEPT OTOLARYNGOLOGY, [address] [address] Medical Oncologist/Recreation Establishment Manager Medical Oncology 07/02/18 Palomo [facility] MD [address] [facility] [address] [place] [address] Radiation Oncologist Radiation Oncology 07/02/18
--- OUTSIDE RECORDS SUMMARY | 2024-09-20 13:26 | XMS_ITS | Clinical Summary ---
Author Organization [facility] Address [address] [facility] [place] [address] Care Team Providers Care Burial Vault Deliverer And Installer Name Role Phone Toñito Guidry MD Unavailable Rc Dodd MD Unavailable Palomo Mason MD Unavailable Amanda Gramajo NP Primary Care Provider [phone] Allergies No known active allergies Medications nicotine (NICODERM CQ) [address] 1 patch on the skin daily 30 patch 2 Active mometasone (NASONEX) 50 mcg/actuation nasal spray [place] 2 sprays every day by intranasal route. [...] (06/20/2020): Added automatically from request for surgery [id number] Sensorineural hearing loss (SNHL), bilateral 06/2018 Tinnitus [...] fever Ringing in ears Runny nose Cancer (HCC) HL (hearing loss) Exposure to noise [...] on file Legal Sex Male 8:56 AM PROCESS MANAGER Gender Identity Not on file Sexual Orientation [...] Depression Screening 1970 Prostate Cancer Screening-PSA 1970 DTaP/Tdap/Td Vaccine (1 - Tdap) 1981 Hepatitis B Screening 1988 Regular Well Visit/Exam 18-64 1988 Pneumococcal vaccine <65 (1 of 2 - PCV) 1989 Zoster Vaccine (1 of 2) 1989 Lung Cancer Screening 2020 Influenza Vaccine (Season Ended) 2025 Hepatitis C Screening Completed 06/08/2018, 018 Procedures Procedure Name Priority Date/Time Associated Diagnosis Comments HEPATITIS C ANTIBODY STAT 06/08/2018 3:30 PM PROCESS MANAGER from Last 3 Months or Most Recently Relevant to Health Maintenance Results * Hepatitis C antibody (06/08/2018 3:30 PM PROCESS MANAGER) Hep C Ab Nonreactive Nonreactive [facility] Comment: Interpretive Data Positive results should be confirmed by a molecular method. If positive, a second separately collected sample should be submitted for Hepatitis C Virus (HCV) RNA Detection and Quantitation by Real-Time Reverse Charge Out Clerk-PCR (RT-PCR). Current interpretive data was last revised on 2016. Blood specimen (specimen) 06/08/2018 3:30 PM PROCESS MANAGER 06/08/2018 3:48 PM PROCESS MANAGER Narrative [facility] - 06/09/2018 8:29 AM PROCESS MANAGER us Notinfile Unknown LAB MICROBIOLOGY - GENERAL ORD ERABLES Edited Result - Final [facility] One [facility] Department [place] [address] from Last 3 Months or Most Recently Relevant to Health Maintenance Insurance [facility] CHOICE PLUS [facility] HMO/PPO Address: [facility] [address] [place] [address] [facility] CHOICE PLUS [facility] HMO/PPO Address: [address] [address] [place] [address] [facility] CHOICE PLUS [facility] HMO/PPO Address: [address] [address] [place] [address] Advance Directives For more information, please contact: [phone] * Full Code (Latest Code Status on File) Date Activated Date Inactivated Comments 06/08/2018 6:03 PM 06/10/2018 4:54 PM Care Teams Burial Vault Deliverer And Installer Relationship Specialty Start Date End Date Amanda Gramajo [employer] [address] [address] [address] PCP - General Nurse Practitioner 04/03/22 Toñito Guidry MD [address] [facility] DEPT [address]NGOLOGY[address] [address] Surgeon Otolaryngology 07/02/18 Rc Dodd MD [address] [facility] DEPT [address]ARYNGOLOGY[address] [address] Medical Oncologist/Lead Sales Consultant Medical Oncology 07/02/18 Palomo Mason MD [address] [facility] [address] [place] [address] Radiation Oncologist Radiation Oncology 07/02/18
--- OUTSIDE RECORDS SUMMARY | 2024-09-20 13:26 | XMS_ITS | Encounter Summary ---
Author Organization [facility] Healthcare Address [address] [place] [address] Care Team Providers Care Maintenance Millwright Name Role Phone Ferny Greer MD Primary Care Provider + Toñito Guidry MD Unavailable [phone] Rc Dodd MD Unavailable [phone] Palomo Mason MD Unavailable [phone] Amanda Gramajo NP Primary Care Provider [phone] Encounter Details Date Type Department Care Team (Late st Contact Info) Description 09/20/2019 Telephone [facility] Advanced Medicine Radiation Oncology [address] [facility] [place] [address] Valentina Quintanilla MA Social History Tobacco Use Types Packs/Day Years Used Date Smoking Tobacco: Some Days Cigarettes 1 37.3 Started: 1987 Smokeless Tobacco: Former Chew Alcohol Use Standard Drinks/Week Comments Yes 0 (1 standard drink = 0.6 oz pur e alcohol) 42 drinks/week Sex and Gender Information Value Date Recorded Sex Assigned at Not on file Legal Sex Male 8:56 AM CAMP PROGRAM DIRECTOR Gender Identity Not on file Sexual Orientation Not on file documented as of this encounter Plan of Treatment Not on file documented as of this encounter Visit Diagnoses Not on filedocumented in this encounter Care Teams Maintenance Millwright Relationship Specialty Start Date End Date Ferny Greer MD PCP - General 07/02/18 04/02/22 [place] [address] [address] PCP - General Nurse Practitioner 04/03/22 Toñito Guidry MD [address] [facility] DEPT OTOLARYNGOLOGY, [address] [address] Surgeon Otolaryngology 07/02/18 Rc Dodd MD [address] [facility] DEPT OTOLARYNGOLOGY, [address] [address] Medical Oncologist/Comber Tender Medical Oncology 07/02/18 Palomo Mason MD [address] [facility] [address] [place] [address] Radiation Oncologist Radiation Oncology 07/02/18 documented as of this encounter
== END 2024-09-20 12:08 | disposition home or self-care (01) ==
LOC: ANHLAB 12:10
PROVIDERS: Visit Provider Podiatrist Foot & Ankle Surgery
DX: Z01.818 Encounter for other preprocedural examination (principal)
CPT/HCPCS: 36415; 80053

== ENCOUNTER 2024-11-17 10:02 | Outpatient (CLI) | payer OTHER, SELFPAY ==
[2024-11-17 11:02] LABS: Hematocrit 44.9 % (42.0-52.0); Hemoglobin 14.9 g/dL (14.0-18.0); Mean Corpuscular HGB Conc 33.2 g/dl (32-36); Mean Corpuscular Volume 93.5 fl (80-100); Mean Platelet Volume 8.8 fl (7.4-10.4); Platelet Count Result 359 k/mm3 (150-375); Red Cell Distribution Width 12.7 % (11.5-14.5); White Blood Count 5.9 K/mm3 (4.5-10.0)
[2024-11-17 11:21] LABS: Alanine Aminotransferase 51 U/L (6-50); Albumin Level 4.5 g/dL (3.5-5.1); Alkaline Phosphatase 75 U/L (38-126); Anion Gap 5 mmol/L (4-12); Aspartate Amino Transferase 52 U/L (17-59); Bilirubin,Total 0.6 mg/dL (0.2-1.3); Blood Urea Nitrogen 16 mg/dL (9-20); Calcium 9.7 mg/dL (8.4-10.2); Carbon Dioxide 28 mmol/L (22-30); Chloride 104 mmol/L (98-107); Estimated Glomerular Filt Rate > 60; Glucose 94 mg/dL (65-110); Potassium 4.7 mmol/L (3.4-5.0); Sodium 137 mmol/L (137-145); Total Protein 7.9 g/dL (6.3-8.2)
--- OUTSIDE RECORDS SUMMARY | 2024-11-17 11:38 | XMS_ITS | Referral Summary ---
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) Discharge Disposition: Discharge to home or self care 10/13/2024 10:00 AM CDT Office Visit [facility] Department of Otolaryngology Head-Neck Division [address] [facility] [place] [address] [place] [address] Toñito Guidry MD 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) (Primary Dx) 10/13/2024 11:00 AM CDT Office Visit [facility] Radiation Oncology [facility] [place] [address] Palomo Mason MD Myers, Jennifer C., NP 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 [...] 4 hours by inhalation route. 6 Active ibuprofen 200 mg tab/cap Take 1 tablet/capsule (200 mg total) by mouth every 6 (six) hours as needed for pain Active acetaminophen (TYLENOL) 325 mg tablet Take 1 tablet (325 mg total) by mouth every 6 (six) hours as needed for pain Active Active Problems Problem Noted Date Diagnosed Date Mass of finger, right 06/20/2020 Overview (06/20/2020): Added automatically from request for surgery [id number] Sensorineural hearing loss (SNHL), bilateral 06/2018 Tinnitus [...] Date Smoking Tobacco: Some Days Cigarettes 1 37.4 Started: 1987 Smokeless Tobacco: Current Chew Tobacco Cessation:Ready to Q uit: Not Asked; Counseling Given: Not Answered Alcohol Use Standard Drinks/Week Comments Yes 4 (1 standard drink = 0.6 oz pur e alcohol) DAILY Sex and Gender Information Value Date Recorded Sex Assigned at Not on file Legal Sex Male 8:56 AM COATER SLATE Gender Identity Not on file Sexual Orientation Not on file Last Filed Vital Signs Vital Sign Reading Time Taken Comments Blood Pressure 128/82 09/21/2024 11:28 AM CDT Pulse 87 09/21/2024 11:28 AM CDT Temperature 37 C (98.6 F) 09/21/2024 11:28 AM CDT Respiratory Rate 20 09/21/2024 11:28 AM CDT Oxygen Saturation 99% 09/21/2024 11:28 AM CDT Inhaled Oxygen Concentration - - Weight 76.7 kg (169 lb) 10/13/2024 11:10 AM CDT Height 182.9 cm (6') 10/15/2023 3:11 PM CDT Body Mass Index 22.92 10/15/2023 3:11 PM CDT Plan of Treatment Not on file Procedures Procedure Name Priority Date/Time Associated Diagnosis Comments CT CHEST WO CONTRAST Schedule Routine, Read Routine (OP Routine) 10/13/2024 9:13 AM CDT 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 Dictated by: Roger Briggs MD The radiology attending physician has personally reviewed this study, and had reviewed and/or edited this written report and agrees with it. Electronically signed by: Elena Laughlin M.D. Narrative 10/13/2024 10:50 AM CDT EXAMINATION: Computed tomography of the chest without intravenous contrast HISTORY: Base of tongue squamous cell carcinoma TECHNIQUE: Transaxial computed tomographic images of the chest were obtained without intravenous contrast according to the standard protocol. COMPARISON: 10/15/2023 FINDINGS: Thyroid gland is normal. Aberrant right subclavian artery. Heart size is normal without pericardial effusion. Minimal coronary artery and thoracic aortic calcifications. No thoracic aorta dilation. Normal caliber main pulmonary artery. No thoracic lymphadenopathy. Central airways are normal in caliber. Mild paraseptal emphysema. Scattered calcified granuloma throughout both lungs. Mild scarring in the lung bases. Unchanged 4 mm right upper lobe nodule (series 3 image 43). No suspicious pulmonary nodule. No focal consolidation, pleural effusion, pneumothorax. Imaged portions of the upper abdomen show no suspicious abnormality. No suspicious osseous lesions. Partially imaged anterior cervical instrumentation. Procedure Note Elena Laughlin MD - 10/13/2024 EXAMINATION: Computed tomography of the chest without intravenous contrast HISTORY: Base of tongue squamous cell carcinoma TECHNIQUE: Transaxial computed tomographic images of the chest were obtained without intravenous contrast according to the standard protocol. COMPARISON: 10/15/2023 FINDINGS: Thyroid gland is normal. Aberrant right subclavian artery. Heart size is normal without pericardial effusion. Minimal coronary artery and thoracic aortic calcifications. No thoracic aorta dilation. Normal caliber main pulmonary artery. No thoracic lymphadenopathy. Central airways are normal in caliber. Mild paraseptal emphysema. Scattered calcified granuloma throughout both lungs. Mild scarring in the lung bases. Unchanged 4 mm right upper lobe nodule (series 3 image 43). No suspicious pulmonary nodule. No focal consolidation, pleural effusion, pneumothorax. Imaged portions of the upper abdomen show no suspicious abnormality. No suspicious osseous lesions. Partially imaged anterior cervical instrumentation. IMPRESSION: No evidence of metastatic disease in the chest. Dictated by: Roger Briggs MD The radiology attending physician has personally reviewed this study, and had reviewed and/or edited this written report and agrees with it. Electronically signed by: Elena Laughlin M.D. Toñito Guidry MD IMG CT PROCEDURES Final Re sult * POC Influenza A/B, COVID-19 antigen (09/21/2024 11:50 AM CDT) Influenza A Ag, POC Negative Negative [facility] Influenza B Ag, POC Negative Negative [facility] COVID-19 Ag POC Presumptive Negative Presumptive Negative, Invalid [facility] Nasal 09/21/2024 11:5 0 AM CDT Darnell Hernandez NP POINT OF CARE TEST ORDERABLES F inal Result [facility] [address] [place] [address] * Hepatitis C antibody (06/08/2018 3:30 PM COATER SLATE) Hep C Ab Nonreactive Nonreactive [facility] Comment: Interpretive Data Positive results should be confirmed by a molecular method. If positive, a second separately collected sample should be submitted for Hepatitis C Virus (HCV) RNA Detection and Quantitation by Real-Time Reverse Program Instructor-PCR (RT-PCR). Current interpretive data was last revised on 2016. Blood specimen (specimen) 06/08/2018 3:30 PM COATER SLATE 06/08/2018 3:48 PM COATER SLATE Narrative [facility] - 06/09/2018 8:29 AM COATER SLATE us Notinfile Unknown LAB MICROBIOLOGY - GENERAL ORD ERABLES Edited Result - Final [facility] [place] [address] from Last 3 Months or Most Recently Relevant to Health Maintenance Insurance [employer] [email or web address] [place] [employer] Advance Directives For more information, please contact: [phone] * Full Code (Latest Code Status on File) Date Activated Date Inactivated Comments 06/08/2018 6:03 PM 06/10/2018 4:54 PM Care Teams Space Systems Operations Craftsman Relationship Specialty [place] [address] [address] [address] PCP - General Nurse Practitioner 04/03/22 Toñito Guidry MD [address] [facility] DEPT OTOLARYNGOLOGY, [address] [address] Surgeon Otolaryngology 07/02/18 Rc Dodd MD [address] [facility] DEPT OTOLARYNGOLOGY, [address] [address] Medical Oncologist/Fire Protection Engineer Medical Oncology 07/02/18 Palomo Mason MD [address] [facility] # LL LL [address] [place] [address] Radiation Oncologist Radiation Oncology 07/02/18
--- OUTSIDE RECORDS SUMMARY | 2024-11-17 11:38 | XMS_ITS | Encounter Summary ---
Author Organization [facility] Healthcare Address [address] [place] [address] Care Team Providers Care Healthcare Interpreter Name Role Phone Ferny Greer MD Primary Care Provider + Toñito Guidry MD Unavailable [phone] Rc Dodd MD Unavailable [phone] Palomo Mason MD Unavailable [phone] Amanda Gramajo NP Primary Care Provider [phone] Encounter Details Date Type Department Care Team (Late st Contact Info) Description 09/15/2019 Telephone [facility] Radiation Oncology [address] 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 Gender Identity Not on file Sexual Orientation Not on file documented as of this encounter Plan of Treatment Not on file documented as of this encounter Visit Diagnoses Not on filedocumented in this encounter Additional Health Concerns Infection Onset Date Last Indicated Resolved Time COVID: Suspected 09/21/2024 09/21/2024 09/21/2024 11:51 AM CDT documented as of this encounter Care Teams Healthcare Interpreter Relationship Specialty Start Date End Date Ferny Greer MD PCP - General 07/02/18 04/02/22 [place] [address] [address] PCP - General Nurse Practitioner 04/03/22 Toñito Guidry MD [address] [facility] DEPT [address]ARYNGOLOGY[address] [address] Surgeon Otolaryngology 07/02/18 Rc Dodd MD [address] [facility] DEPT [address]NGOLOGY[address] [address] Medical Oncologist/Siding Applicator Medical Oncology 07/02/18 Palomo Mason MD [address] [facility] [address] LL [address] [place] [address] Radiation Oncologist Radiation Oncology 07/02/18 documented as of this encounter
--- OUTSIDE RECORDS SUMMARY | 2024-11-17 11:38 | XMS_ITS ---
Author Organization [facility] Address [address] [facility] [place] [address] Care Team Providers Care Power Wheelchair Mechanic Name Role Phone Toñito Guidry MD Unavailable Rc Dodd MD Unavailable [phone] Palomo Mason MD Unavailable [phone] Amanda Gramajo NP Primary Care Provider [phone] Active Problems Problem Noted Date Diagnosed Date Mass of finger, right 06/20/2020 Overview (06/20/2020): Added automatically from request for surgery [id number] Sensorineural hearing loss (SNHL), bilateral 06/2018 Tinnitus [...] Treatment Medications Discontinue Reason Plan Provider Cycles [id number] - [facility] - Head and Neck - Arm 1 - POAmCRT - Cisplatin x 1 07/22/2018 11/22/2020 CISplatin (PLATINOL) IVPB in 250 mL Provider Discretion Oppe, Rc Heredia MD 1 of 1 cycle started Radiation Treatments * Course C1 HN 2019 07/22/2018 - 08/19/2018 Treatment Period Energy Fraction Dose Fractions Total Dose Plans Planned HN_LT 07/22/2018 - 08/19/2018 200 21 / 4,200 Reference Points Delivered [id number]_[id number] 07/22/2018 - 08/19/2018 4,200 Lifetime Dose Tracking * Chemical Lifetime Dose Automatic Entry Manual Entr y Fluoro Time 9.55 minutes 9.55 minutes 0 minutes Air kerma at the reference point (Ka,r) 6.9 mGy 6 .9 mGy 0 mGy DLP 7,286.9 mGycm 7,286.9 mGycm 0 mGycm Treatment Summaries 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 [place] [id number] This Survivorship Care Plan is a cancer [...] Name: Contact Information: Primary Care Physician Ferny Looneyinson [phone] Surgeon Toñito Guidry MD [phone] Radiation Oncologist Palomo Mason MD [phone] Medical Oncologist Rc Dodd MD [phone] Speech Language Pathologist Regla Cole [phone] Patient Carrier Tanya Waddell [phone] Other Providers Nicki Berg [facility] [phone] Treatment Summary Cancer Diagnosis Information Diagnosis Squamous [...] 28 Systemic Therapy (chemotherapy, hormonal therapy, other) [id number] - [facility] - Head and Neck - Arm 1 [...] Status On follow up Start Date 06/03/18 NCT [id number] H&N OUTCOMES DATABASE Status On study Start Date 07/02/18 [facility] [id number] Treatment Ongoing: No Persistent symptoms or side [...] Help learning to eat healthier, call the general merchandise salesperson at: [facility] . Have an active lifestyle, [...] yearly. Resources you may be interested in: [facility] Cancer Center A National Cancer Holstein Comprehensive Cancer Center http://www.[facility]/ [facility] & Cancer Information Center 1st floor of [facility] [phone]. Computer access, educational material, counseling services (FREE) Cancer Resources: www.cancer.net National Cancer Holstein: http://www.cancer.gov/ [place] Disabilities Act: The U.S. Department of Justice provides information about the Americans with Disabilities Act (ADA). Toll free number http://www.ada.gov/ Support for People with Oral and Head and Neck Cancer, Inc. (SPOHNC): dedicated to raising awareness and meeting the needs of oral and head and neck cancer patients through its resources and publications. https://www.spohnc.org/index.php Occupational Therapy at [facility]. Improve memory and thinking following chemotherapy. Improve your performance at home, work and in the community. or Toll free www.ot.[facility]/patients National Coalition for Cancer Survivorship: http://www.canceradvocacy.org/ [place] Cancer Society Cancer Survivors Network: http://csn.cancer.org/ LIVE STRONG at the [employer] is a twelve-week, small group program designed to help adult cancer survivors become more physically active after cancer diagnosis: http://www.livestrong.org/what-we-do/our-act ions/programs-partnerships/dyhkiwbjoz-pq-dfh-f f [facility]/wxrgcbgszx-wlkh-bpqhhvxvm/ USDA SuperTracker: www.International Liars Poker Association.Official Limited Virtual.gov Cancer Support Community: Our mission is to ensure that all people impacted by cancer are empoweredby knowledge, strengthened by action, and sustained by community to enhance their overall well-being. http://www.cancersupportstl.org/ Ciop3IgyjPlecdqd: Building support through a community of individuals with disfigurement to promotehealing through outreach, advocacy, interaction, activity, resources and education. http://paml6wyneczqzveu.org/ Head and Neck cancer guide: http://headandneckcancerguide.org/adults/lrjoubzehzae-sb-dhcc-abn-jcin-czbamy/ Springboard Beyond Cancer: https://survivorship.cancer.gov/ an online tool for cancer survivors andcaregivers created by the [place] Cancer Society and the National Cancer Holstein. It provides: Information on dealing with side [...]
--- OUTSIDE RECORDS SUMMARY | 2024-11-17 11:38 | XMS_ITS | Encounter Summary ---
Author Organization [facility] Healthcare Address [address] [place] [address] Care Team Providers Care Agricultural Extension Officer Name Role Phone Ferny Greer MD Primary Care Provider + Toñito Guidry MD Unavailable Rc Dodd MD Unavailable [phone] Palomo Mason MD Unavailable Amanda Gramajo NP Primary Care Provider [phone] Encounter Details Date Type Department Care Team (Late st Contact Info) Description 09/20/2019 Telephone [facility] Radiation Oncology [address] [facility] Advanced Medicine [place], [place] [id number] Valentina Quintanilla MA Social History Tobacco Use Types Packs/Day Years Used Date Smoking Tobacco: Some Days Cigarettes 1 37.4 Started: 1987 Smokeless Tobacco: Former Chew Alcohol Use Standard Drinks/Week Comments Yes 0 (1 standard drink = 0.6 oz pur e alcohol) 42 drinks/week Sex and Gender Information Value Date Recorded Sex Assigned at Not on file 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 Gender Identity Not on file Sexual Orientation Not on file documented as of this encounter Plan of Treatment Not on file documented as of this encounter Visit Diagnoses Not on filedocumented in this encounter Additional Health Concerns Infection Onset Date Last Indicated Resolved Time COVID: Suspected 09/21/2024 09/21/2024 09/21/2024 11:51 AM CDT documented as of this encounter Care Teams Agricultural Extension Officer Relationship Specialty Start Date End Date Ferny Greer MD PCP - General 07/02/18 04/02/22 [place] [address] [address] PCP - General Nurse Practitioner 04/03/22 Toñito Guidry MD [address] [facility] DEPT [address]ARYNGOLOGY[address] [address] Surgeon Otolaryngology 07/02/18 Rc Dodd MD [address] [facility] DEPT [address]NGOLOG[address] [address] Medical Oncologist/Contracts Law Professor Medical Oncology 07/02/18 Palomo Mason MD [address] [facility] [address] LL [address] [place] [address] Radiation Oncologist Radiation Oncology 07/02/18 documented as of this encounter
--- OUTSIDE RECORDS SUMMARY | 2024-11-17 11:38 | XMS_ITS | Encounter Summary ---
Author Organization [facility] Healthcare Address [address] [place] [address] Care Team Providers Care Access Developer Name Role Phone Ferny Greer MD Primary Care Provider + Toñito Guidry MD Unavailable [phone] Rc Dodd MD Unavailable [phone] Palomo Mason MD Unavailable Amanda Gramajo NP Primary Care Provider [phone] Encounter Details Date Type Department Care Team (Late st Contact Info) Description 12/30/2019 Telephone [facility] Radiation Oncology [address] [facility] [place] [address] Valentina Quintanilla MA Social History Tobacco Use Types Packs/Day Years Used Date Smoking Tobacco: Some Days Cigarettes 1 37.4 Started: 1987 Smokeless Tobacco: Former Chew Alcohol Use Standard Drinks/Week Comments Yes 0 (1 standard drink = 0.6 oz pur e alcohol) 42 drinks/week Sex and Gender Information Value Date Recorded Sex Assigned at Not on file Legal Sex Male 8:56 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 Gender Identity Not on file Sexual Orientation Not on file documented as of this encounter Plan of Treatment Not on file documented as of this encounter Visit Diagnoses Not on filedocumented in this encounter Additional Health Concerns Infection Onset Date Last Indicated Resolved Time COVID: Suspected 09/21/2024 09/21/2024 09/21/2024 11:51 AM CDT documented as of this encounter Care Teams Access Developer Relationship Specialty Start Date End Date Ferny Greer MD PCP - General 07/02/18 04/02/22 [place] [address] [address] PCP - General Nurse Practitioner 04/03/22 Toñito Guidry MD [address] [facility] DEPT [address]ARYNGOLOGY[address] [address] Surgeon Otolaryngology 07/02/18 Rc Dodd MD [address] [facility] DEPT [address]NGOLOG[address] [address] Medical Oncologist/Oreman Medical Oncology 07/02/18 Palomo Mason MD [address] [facility] [address] [place] [address] Radiation Oncologist Radiation Oncology 07/02/18 documented as of this encounter
--- OUTSIDE RECORDS SUMMARY | 2024-11-17 11:38 | XMS_ITS | Clinical Summary ---
Author Organization [facility] Address [address] [place] [address] Care Team Providers Care Agency Director Name Role Phone Toñito Guidry MD Unavailable [phone] Rc Dodd MD Unavailable Palomo Mason MD Unavailable [phone] Amanda Gramajo NP Primary Care Provider [phone] Allergies No known active allergies Medications nicotine (NICODERM CQ) [address] 1 patch on the skin daily 30 patch 2 Active mometasone (NASONEX) 50 mcg/actuation nasal spray [place] 2 sprays every day by intranasal route. 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) Discharge Disposition: Discharge to home or self care 09/21/2024 11:30 AM CDT Office Visit [facility] at [address] [address] Darnell Hernandez NP Acute sinusitis, recurrence not specified, unspecified location (Primary Dx) from Last 3 Months Surgical History Surgery Date Site/Laterality Comments NECK [...] on file 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 09/21/2024 11:5 0 AM CDT Darnell Hernandez NP POINT OF CARE TEST ORDERABLES F inal Result Performing Organization Address City/State/[facility] Co de Phone Number [facility] [address] [place] [address] * Hepatitis C antibody (06/08/2018 3:30 PM FIRESTOPPER INSTALLER) [facility] Hep C Ab Nonreactive Nonreactive [facility] Comment: Interpretive Data Positive results should be confirmed by a molecular method. If positive, a second separately collected sample should be submitted for Hepatitis C Virus (HCV) RNA Detection and Quantitation by Real-Time Reverse Information Technology Technician-PCR (RT-PCR). Current interpretive data was last revised on 2016. Blood specimen (specimen) 06/08/2018 3:30 PM FIRESTOPPER INSTALLER 06/08/2018 3:48 PM FIRESTOPPER INSTALLER Narrative [facility] - 06/09/2018 8:29 AM FIRESTOPPER INSTALLER us Notinfile Unknown LAB MICROBIOLOGY - GENERAL ORD ERABLES Edited Result - Final [facility] Department [place] [address] from Last 3 Months or Most Recently Relevant to Health Maintenance Insurance [facility] CHOICE PLUS [facility] CHOICE PLUS [place] [id number] [facility] CHOICE PLUS Advance Directives For more information, please contact: [phone] * Full Code (Latest Code Status on File) Date Activated Date Inactivated Comments 06/08/2018 6:03 PM 06/10/2018 4:54 PM Care Teams Agency Director Relationship Specialty [place] [id number] [address] PCP - General Nurse Practitioner 04/03/22 Toñito Guidry MD [address] [facility] [address] DEPT [address]NGOLOGY[address] [address] Surgeon Otolaryngology 07/02/18 Rc Dodd MD [address] [address] Medical Oncologist/Director Payment Medical Oncology 07/02/18 Paloom Mason MD [address] [facility] CB [address] [place] [id number] Radiation Oncologist Radiation Oncology 07/02/18
--- OUTSIDE RECORDS SUMMARY | 2024-11-17 11:38 | XMS_ITS | Encounter Summary ---
Author Organization [facility] [facility] Address [address] [place] [address] Phone Care Team Providers Care Trench Digging Machine Operator Name Role Phone Ferny Greer MD Primary Care Provider + No, Physician Primary Care Provider [phone] No, Physician Primary Care Provider [phone], Physician Primary Care Provider [phone] Ferny Greer MD Primary Care Provider + Toñito Guidry MD Unavailable [phone] Rc Dodd MD Unavailable Palomo Mason MD Unavailable Amanda Gramajo NP Primary Care Provider [phone] Encounter Details Date Type Department Care Team (Late st Contact Info) Description 05/28/2018 Telephone [facility] ([facility]) - [facility] ENT [address] [facility] 11th [place] [address] [place] [address] Kyra Castillo Social History Tobacco Use Types Packs/Day Years Used Date Smoking Tobacco: Every Day Cigarettes 1 37.4 Started: 1987 Smokeless Tobacco: Current Alcohol Use Standard Drinks/Week Comments Yes 0 (1 standard drink = 0.6 oz pur e alcohol) 42 drinks/week Sex and Gender Information Value Date Recorded Sex Assigned at Not on file 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 Sex Male 8:56 AM LEAD 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 Gender Identity Not on file Sexual Orientation Not on file documented as of this encounter Plan of Treatment Not on file documented as of this encounter Visit Diagnoses Not on filedocumented in this encounter Additional Health Concerns Infection Onset Date Last Indicated Resolved Time COVID: Suspected 09/21/2024 09/21/2024 09/21/2024 11:51 AM CDT documented as of this encounter Care Teams Trench Digging Machine Operator Relationship Specialty Start Date End Date Ferny Greer MD PCP - General 05/27/18 06/04/18 No, Physician PCP - General 06/05/18 06/07/18 No, Physician PCP - General 06/08/18 06/09/18 No, Physician PCP - General 06/10/18 07/01/18 Ferny Greer MD PCP - General 07/02/18 04/02/22 [place] [id number] [address] PCP - General Nurse Practitioner 04/03/22 Toñito Guidry MD [address] [facility] DEPT OTOLARYNGOLOGY, [address] [address] Surgeon Otolaryngology 07/02/18 Rc Dodd MD [address] [facility] DEPT OTOLARYNGOLOGY, [address] [address] Medical Oncologist/Oil Well Perforator Operator Medical Oncology 07/02/18 Palomo Mason MD [address] [facility] [address] LL [address] [place] [address] Radiation Oncologist Radiation Oncology 07/02/18 documented as of this encounter
[2024-11-17 12:28] LABS: Hepatitis B Surface Antigen Negative (Negative)
[2024-11-18 15:33] LABS: Hepatitis C RNA, Quant PCR <15 NOT DETECTED IU/mL (NOT DETECTED)
[2024-11-18 17:38] LABS: Hepatitis B Core Ab Total REACTIVE (NON-REACTIVE)
[2024-11-20 13:49] LABS: NIL 0.02 IU/mL; Quantiferon TB Plus, 1T NEGATIVE (NEGATIVE); TB1-NIL 0.01 IU/mL; TB2-NIL 0.01 IU/mL
== END 2024-11-17 10:03 | disposition home or self-care (01) ==
DX: L40.0 Psoriasis vulgaris (principal); L57.0 Actinic keratosis; L72.8 Other follicular cysts of the skin and subcutaneous tissue; D22.9 Melanocytic nevi, unspecified; Z71.89 Other specified counseling
CPT/HCPCS: 36415; 80048; 80076; 85027; 86480; 86704; 87340; 87522